=== PATIENT | female | born 1995 ===

== ENCOUNTER 2020-01-07 15:32 | Emergency (ER) | payer OTHER ==
[2020-01-07 15:44] VITALS: BP 122/84
[2020-01-07] MEDS ORDERED: Ibuprofen TAB* 600 MG PO ONE (15:51)
--- NOTE | 2020-01-07 15:56 | UC ---
Hand/Wrist HPI - HPI Summary HPI Summary: foosh 2 hours ago--left wrist pain n/m/c intact distally - History Of Current Complaint Chief Complaint: UCUpperExtremity Stated Complaint: WRIST INJURY Time Seen by Provider: 01/07/20 15:47 Hx Obtained From: Patient Hx Last Menstrual Period: 1 week ago (has IUD) ?: No Mechanism Of Injury: Foosh Onset/Duration: Sudden Onset Pain Intensity: 8 Pain Scale Used: 0-10 Numeric Character Of Pain: Aching, Throbbing Aggravating Factor(s): Movement Alleviating Factor(s): Rest, Ice Associated Signs And Symptoms: Positive: Negative Related History: Dominant Hand Right - Allergies/Home Medications Allergies/Adverse Reactions: Allergies Allergy/AdvReac Type Severity Reaction Status Date / Time No Known Allergies Allergy Verified 01/07/20 15:44 Home Medications: Home Medications Iud* 01/07/20 [History] PMH/Surg Hx/FS Hx/Imm Hx Previously Healthy: Yes - Surgical History Surgical History: Yes Surgery Procedure, Year, and Place: foot surgery - Family History Known Family History: Positive: None - Social History Occupation: Student Lives: Dormitory/Roommates Alcohol Use: None Substance Use Type: None Smoking Status (MU): Never Smoked Tobacco Review of Systems All Other Systems Reviewed And Are Negative: Yes Constitutional: Positive: Negative Skin: Positive: Negative Eyes: Positive: Negative ENT: Positive: Negative Respiratory: Positive: Negative Cardiovascular: Positive: Negative Gastrointestinal: Positive: Negative Genitourinary: Positive: Negative Motor: Positive: Decreased ROM - left wrist Neurovascular: Positive: Negative Musculoskeletal: Positive: Arthralgia - left wrist Neurological/Mental Status: Positive: Negative Psychological: Positive: Negative Is Patient Immunocompromised?: No Physical Exam Triage Information Reviewed: Yes Appearance: Well-Appearing, No Pain Distress, Well-Nourished Vital Signs: Initial Vital Signs Temp 97.7 F 01/07/20 15:40 Pulse 72 01/07/20 15:40 Resp 16 01/07/20 15:40 BP 122/84 01/07/20 15:40 Pulse Ox 100 01/07/20 15:40 Vital Signs Reviewed: Yes Eye Exam: Normal Eyes: Positive: Conjunctiva Clear ENT Exam: Normal ENT: Positive: Normal ENT inspection, Hearing grossly normal. Negative: Trismus , Muffled voice, Hoarse voice Dental Exam: Normal Neck exam: Normal Neck: Positive: Supple, Nontender Respiratory Exam: Normal Respiratory: Positive: Chest non-tender, Lungs clear, Normal breath sounds, No respiratory distress Cardiovascular Exam: Normal Cardiovascular: Positive: RRR, Pulses Normal, Brisk Capillary Refill Musculoskeletal Exam: Other Musculoskeletal: Positive: No Edema, Strength Limited @ - left wrist, ROM Limited @ - left wrist Neurological Exam: Normal Neurological: Positive: Alert, Muscle Tone Normal Psychological Exam: Normal Skin Exam: Normal Diagnostics - Radiology No standard instances Radiology Interpretation Completed By: Radiologist - no evidence of fracture Hand/Wrist Course/Dx - Course Course Of Treatment: splint rice follow at [facility] if needed - Differential Dx/Diagnosis Provider Diagnosis: Left wrist sprain Discharge ED - Sign-Out/Discharge Documenting (check all that apply): Patient Departure All imaging exams completed and their final reports reviewed: Yes - Discharge Plan Condition: Stable Disposition: HOME Patient Education Materials: R.I.C.E. Treatment (ED), Wrist Sprain (ED) Referrals: [facility] [Outside] - 4 Days - Billing Disposition and Condition Condition: STABLE Disposition: Home
== END 2020-01-07 16:39 | disposition home or self-care (01) ==
LOC: UCEAST 15:32
DX: S63.502A Unspecified sprain of left wrist, initial encounter (principal); W19.XXXA Unspecified fall, initial encounter; Y92.9 Unspecified place or not applicable
CPT/HCPCS: 99203; A9270-GY; G0463